=== PATIENT | male | born 1965 | race Two or more races ===

== ENCOUNTER 2022-09-08 20:49 | Emergency (ER) | payer SELFPAY ==
[~2022-09-08] VITALS: Ht 167.6 cm; Wt 70.0 kg
[2022-09-08 21:44] LABS: Basophils # (auto) 0 10 ^3/uL (0-0.2); Basophils % (auto) 0.7 % (0.0-2.0); Eosinophils # (auto) 0 10 ^3/uL (0-0.8); Eosinophils % (auto) 0.6 % (0.0-7.0); Hematocrit 46.3 % (41.0-53.0); Hemoglobin 15.6 g/dL (13.5-17.5); Lymphocytes % (auto) 30.9 % (10.0-50.0); Mean Corpuscular Hemoglobin 31.4 pg (28.0-32.0); Mean Corpuscular Hgb Conc. 33.7 g/dL (32.0-36.0); Mean Corpuscular Volume 93.2 fL (80.0-100.0); Monocytes # (auto) 0.3 10 ^3/uL (0-1.3); Monocytes % (auto) 5.1 % (0.0-12.0); Neutrophils % (auto) 62.7 % (37.0-80.0); Nucleated Red Blood Cells % 0.1 %; Red Blood Cells 4.97 10^6/uL (4.5-5.90); Red Cell Distribution Width 14.8 % (11.8-14.3); White Blood Cell 6.5 10^3/uL (4.4-10.8)
[2022-09-08 22:07] LABS: Albumin 3.8 g/dL (3.4-5.0); Calcium 7.7 mg/dL (8.5-10.1); Magnesium 2.8 mg/dL (1.6-2.6); Potassium 3.9 mmol/L (3.5-5.1)
[2022-09-08 22:08] LABS: Salicylate < 1.7 mg/dL (2.8-20.0)
[2022-09-08 22:09] LABS: Acetaminophen < 2.0 ug/mL (10-30)
[2022-09-08 22:11] LABS: BUN/Creatinine Ratio 15.6 (10.0-20.0); Bilirubin, Total 1.2 mg/dL (0.2-1.0); Total Protein 7.4 g/dL (6.4-8.2)
[2022-09-08] MEDS ORDERED: LACTATED RINGER'S 2,000 ML IV ONE (22:30)
[2022-09-09 02:20] VITALS: BP 142/86
== END 2022-09-09 05:20 | disposition home or self-care (01) ==
LOC: ER 20:49 → EDBD 20:49 → ER 09-09 05:20
DX: S01.01XA Laceration without foreign body of scalp, initial encounter (principal); F10.129 Alcohol abuse with intoxication, unspecified; E87.0 Hyperosmolality and hypernatremia; E86.0 Dehydration; W18.39XA Other fall on same level, initial encounter; Y93.89 Activity, other specified; Y92.89 Other specified places as the place of occurrence of the external cause; Y99.8 Other external cause status
CPT/HCPCS: 12001; 36415; 70450; 71045; 80053; 80320; 80329; 83735; 84484; 85025; 93005; 96360; 96361; 99285; J7030

== ENCOUNTER 2023-06-21 02:21 | Inpatient (IN) | payer MEDICAID, OTHER ==
[~2023-06-21] VITALS: Ht 165.1 cm; Wt 85.6 kg
[2023-06-21 04:20] VITALS: PULSE 79; RESP 20; O2SAT 97
[2023-06-21] MEDS: SODIUM CHLORIDE 0.9% 1,000 ML IV ONE (04:58)
[2023-06-21 05:00] LABS: Basophils # (auto) 0 10 ^3/uL (0-0.2); Eosinophils # (auto) 0 10 ^3/uL (0-0.8); Lymphocytes # (auto) 0.6 10 ^3/uL (0.4-5.4)
[2023-06-21 05:01] LABS: Basophils % (auto) 0.2 % (0.0-2.0); Hemoglobin 19.9 g/dL (13.5-17.5); Lymphocytes % (auto) 3.4 % (10.0-50.0); Mean Corpuscular Hemoglobin 31.7 pg (28.0-32.0); Mean Corpuscular Hgb Conc. 33.6 g/dL (32.0-36.0); Mean Corpuscular Volume 94.4 fL (80.0-100.0); Monocytes # (auto) 0.4 10 ^3/uL (0-1.3); Monocytes % (auto) 2.4 % (0.0-12.0); Neutrophils # (auto) 16.3 10 ^3/uL (1.6-8.6); Nucleated Red Blood Cells % 0.1 %; Red Blood Cells 6.28 10^6/uL (4.5-5.90); Red Cell Distribution Width 14.1 % (11.8-14.3); White Blood Cell 17.3 10^3/uL (4.4-10.8)
[2023-06-21 05:19] LABS: Hematocrit 59.3 % (41.0-53.0)
[2023-06-21 05:34] LABS: Alanine Aminotransferase 57 U/L (7-40); Albumin 5.4 g/dL (3.2-4.8); Alkaline Phosphatase 116 U/L (46-116); Anion Gap 11 (5-15); Aspartate Aminotransferase 39 U/L (13-40); BUN/Creatinine Ratio 13.4 (10.0-20.0); Blood Urea Nitrogen 23 mg/dL (9-23); Calcium 10.3 mg/dL (8.7-10.4); Carbon Dioxide 24 mmol/L (20-30); Chloride 99 mmol/L (98-107); Glucose 160 mg/dL (74-106); Lipase 47 U/L (12-53); Sodium 134 mmol/L (136-145)
[2023-06-21 05:35] LABS: Bilirubin, Total 2.5 mg/dL (0.2-1.0); Total Protein 9.2 g/dL (5.7-8.2)
[2023-06-21] MEDS: MORPHINE SULFATE INJ 2 MG/ml SYRG IV ONE (05:37)
[2023-06-21] MEDS: ONDANSETRON HCL 4 MG/2 ML VIAL IV ONE (05:38)
[2023-06-21] MEDS: PIPERACILLIN-TAZOB 3.375GM 100 ML IV ONE ×2 (05:59→06:17)
[2023-06-21] MEDS: ALBUTEROL SULF 2.5 MG/0.5ML(0.5%) NEB SOLN NEB ONE (06:05)
[2023-06-21] MEDS: SODIUM ZIRCONIUM CYCL 10 GM PAK PO ONE (06:47)
[2023-06-21] MEDS ORDERED: ONDANSETRON HCL 4 MG/2 ML VIAL IV PRN (07:00)
[2023-06-21] MEDS ORDERED: MORPHINE SULFATE INJ 2 MG/ml SYRG IV PRN (07:00)
[2023-06-21] MEDS ORDERED: NITROGLYCERIN 0.4 MG SL TAB SL PRN (07:00)
[2023-06-21] MEDS ORDERED: DOCUSATE SOD 100 MG CAP PO PRN (07:00)
[2023-06-21] MEDS: DEXTROSE (50%) 50ML SYRG IV ONE (07:14)
[2023-06-21] MEDS: CALCIUM CHL 100MG/ML 500 MG in D5W 5% 100 ML IV ONE (07:14)
[2023-06-21] MEDS: SODIUM BICARB 8.4% 50Meq/50ml SYR Vial IV ONE (07:18)
[2023-06-21] MEDS: InsuLIN REG 1unit/0.01ml Soln (100units/ml) IV ONE (07:22)
[2023-06-21 07:50] VITALS: PULSE 120; RESP 16; O2SAT 96
[2023-06-21] MEDS: SODIUM CHLORIDE 0.9% 1,000 ML IV SCH (08:52)
[2023-06-21 12:10] LABS: Albumin 4.4 g/dL (3.2-4.8); Bilirubin, Direct 0.5 mg/dL (<0.3); Bilirubin, Total 2.2 mg/dL (0.2-1.0); Total Protein 6.9 g/dL (5.7-8.2)
[2023-06-21] MEDS: cefTRIAXone 1GM/50ML D5W 50 ML IV ONE (13:03)
[2023-06-21] MEDS: metroNIDAZOLE 500MG/100ML 100 ML IV SCH (14:35)
[2023-06-21 16:00] VITALS: BP 145/85; PULSE 84; RESP 17; TEMP 98.1; O2SAT 92
[2023-06-21 16:30] VITALS: BP 145/86; PULSE 86; RESP 17; TEMP 98.1; O2SAT 92
[2023-06-21] MEDS: HYDROcodone-ACET 5/325MG TAB PO PRN (17:52)
[2023-06-21 20:00] VITALS: BP 119/74; PULSE 78; PULSE 99; RESP 22; TEMP 98.5; O2SAT 98
[2023-06-21 21:00] VITALS: BP 119/74; PULSE 99; RESP 22; TEMP 98.5; O2SAT 98
[2023-06-22] VITALS (8 sets, daily range): BP systolic 102–133; BP diastolic 59–92; PULSE 63–89; RESP 17–22; TEMP 98–98.6; O2SAT 94–99
[2023-06-22 06:12] LABS: Alanine Aminotransferase 34 U/L (7-40); Albumin 3.8 g/dL (3.2-4.8); Alkaline Phosphatase 72 U/L (46-116); Amylase 63 U/L (30-118); Anion Gap 3 (5-15); Aspartate Aminotransferase 26 U/L (13-40); BUN/Creatinine Ratio 17.3 (10.0-20.0); Blood Urea Nitrogen 17 mg/dL (9-23); Calcium 8.1 mg/dL (8.7-10.4); Carbon Dioxide 30 mmol/L (20-30); Chloride 107 mmol/L (98-107); Glucose 107 mg/dL (74-106); Potassium 3.5 mmol/L (3.5-5.1); Sodium 140 mmol/L (136-145)
[2023-06-22 06:13] LABS: Total Protein 6.2 g/dL (5.7-8.2)
[2023-06-22 06:15] LABS: Basophils # (auto) 0 10 ^3/uL (0-0.2); Basophils % (auto) 0.5 % (0.0-2.0); Eosinophils # (auto) 0.1 10 ^3/uL (0-0.8); Eosinophils % (auto) 0.5 % (0.0-7.0); Hematocrit 48.6 % (41.0-53.0); Hemoglobin 16.1 g/dL (13.5-17.5); Lymphocytes # (auto) 1.6 10 ^3/uL (0.4-5.4); Lymphocytes % (auto) 16.6 % (10.0-50.0); Mean Corpuscular Hemoglobin 31.3 pg (28.0-32.0); Mean Corpuscular Hgb Conc. 33.1 g/dL (32.0-36.0); Mean Corpuscular Volume 94.6 fL (80.0-100.0); Monocytes # (auto) 0.9 10 ^3/uL (0-1.3); Monocytes % (auto) 8.9 % (0.0-12.0); Neutrophils # (auto) 7.1 10 ^3/uL (1.6-8.6); Neutrophils % (auto) 73.5 % (37.0-80.0); Nucleated Red Blood Cells % 0.1 %; Red Blood Cells 5.14 10^6/uL (4.5-5.90); Red Cell Distribution Width 14.1 % (11.8-14.3); White Blood Cell 9.6 10^3/uL (4.4-10.8)
[2023-06-22] MEDS: cefTRIAXone 1GM/50ML D5W 50 ML IV SCH (08:53)
[2023-06-22] MEDS: PANTOPRAZOLE 40 MG/10 ML VIAL INJ IV ONE (11:15)
[2023-06-23] VITALS (8 sets, daily range): BP systolic 110–130; BP diastolic 71–87; PULSE 59–80; RESP 17–20; TEMP 97.9–98.9; O2SAT 96–98
[2023-06-23 06:32] LABS: Alanine Aminotransferase 31 U/L (7-40); Albumin 3.3 g/dL (3.2-4.8); Alkaline Phosphatase 64 U/L (46-116); Amylase 55 U/L (30-118); Anion Gap 3 (5-15); Aspartate Aminotransferase 28 U/L (13-40); BUN/Creatinine Ratio 12.7 (10.0-20.0); Bilirubin, Total 2.9 mg/dL (0.2-1.0); Blood Urea Nitrogen 10 mg/dL (9-23); Calcium 8.3 mg/dL (8.7-10.4); Carbon Dioxide 27 mmol/L (20-30); Chloride 107 mmol/L (98-107); Glucose 93 mg/dL (74-106); Lipase 40 U/L (12-53); Potassium 4.2 mmol/L (3.5-5.1); Sodium 137 mmol/L (136-145); Total Protein 5.5 g/dL (5.7-8.2)
[2023-06-23 06:35] LABS: Basophils # (auto) 0.1 10 ^3/uL (0-0.2); Basophils % (auto) 0.7 % (0.0-2.0); Eosinophils # (auto) 0.2 10 ^3/uL (0-0.8); Eosinophils % (auto) 2.4 % (0.0-7.0); Hematocrit 44.4 % (41.0-53.0); Hemoglobin 15.3 g/dL (13.5-17.5); Lymphocytes # (auto) 2.1 10 ^3/uL (0.4-5.4); Lymphocytes % (auto) 27.2 % (10.0-50.0); Mean Corpuscular Hemoglobin 32.4 pg (28.0-32.0); Mean Corpuscular Hgb Conc. 34.4 g/dL (32.0-36.0); Mean Corpuscular Volume 94.4 fL (80.0-100.0); Monocytes # (auto) 0.6 10 ^3/uL (0-1.3); Monocytes % (auto) 8.4 % (0.0-12.0); Neutrophils # (auto) 4.7 10 ^3/uL (1.6-8.6); Neutrophils % (auto) 61.3 % (37.0-80.0); Red Cell Distribution Width 13.4 % (11.8-14.3); White Blood Cell 7.7 10^3/uL (4.4-10.8)
[2023-06-23] MEDS: PANTOPRAZOLE 40 MG/10 ML VIAL INJ IV SCH (08:18)
[2023-06-24 05:00] VITALS: BP 132/89; PULSE 65; RESP 16; TEMP 98.3; O2SAT 98
[2023-06-24 05:56] LABS: Basophils # (auto) 0 10 ^3/uL (0-0.2); Basophils % (auto) 0.3 % (0.0-2.0); Eosinophils # (auto) 0.1 10 ^3/uL (0-0.8); Hematocrit 46.5 % (41.0-53.0); Lymphocytes # (auto) 1.3 10 ^3/uL (0.4-5.4); Lymphocytes % (auto) 13.4 % (10.0-50.0); Mean Corpuscular Hgb Conc. 34.4 g/dL (32.0-36.0); Monocytes # (auto) 0.7 10 ^3/uL (0-1.3); Monocytes % (auto) 7.3 % (0.0-12.0); Neutrophils # (auto) 7.6 10 ^3/uL (1.6-8.6); Nucleated Red Blood Cells % 0.1 %; Red Blood Cells 4.99 10^6/uL (4.5-5.90); Red Cell Distribution Width 13.3 % (11.8-14.3); White Blood Cell 9.8 10^3/uL (4.4-10.8)
[2023-06-24 06:06] LABS: Prothrombin Time 10.5 sec (9.3-11.8)
[2023-06-24 06:24] LABS: Alanine Aminotransferase 39 U/L (7-40); Alkaline Phosphatase 77 U/L (46-116); Anion Gap 6 (5-15); Aspartate Aminotransferase 34 U/L (13-40); BUN/Creatinine Ratio 12.3 (10.0-20.0); Bilirubin, Total 2.2 mg/dL (0.2-1.0); Blood Urea Nitrogen 9 mg/dL (9-23); Calcium 8.6 mg/dL (8.5-10.1); Carbon Dioxide 25 mmol/L (20-30); Chloride 105 mmol/L (98-107); Glucose 98 mg/dL (74-106); Potassium 4.1 mmol/L (3.5-5.1); Sodium 136 mmol/L (136-145); Total Protein 6.1 g/dL (5.7-8.2)
[2023-06-24 08:00] VITALS: PULSE 62
[2023-06-24 09:00] VITALS: BP 140/88; PULSE 64; RESP 19; TEMP 97.7; O2SAT 98
[2023-06-24 09:03] LABS: Hepatitis B Core Total AB Negative (Negative)
[2023-06-24 11:56] LABS: Urine Bacteria None Seen /hpf (None Seen)
[2023-06-24 12:08] LABS: Hepatitis A Total Antibody Positive (Negative); Hepatitis B Surface Antibody Negative (Negative)
[2023-06-24 12:09] LABS: Hepatitis B Surface Antigen Negative (Negative); Hepatitis C Antibody Negative (Negative)
[2023-06-24 12:13] LABS: Urine Blood Negative /uL (Negative); Urine Clarity Clear (Clear); Urine Color Light-Yellow (Yellow); Urine Mucus FEW (None Seen); Urine Protein, UAD Negative (Negative); Urine Specific Gravity 1.013 (1.001-1.035); Urine Urobilinogen Normal (Negative); Urine WBC <1 /hpf (0 - 3)
[2023-06-24 13:30] VITALS: BP 123/85; PULSE 67; RESP 19; TEMP 98.1; O2SAT 99
[2023-06-24 16:30] VITALS: BP 126/70; PULSE 76; RESP 18; TEMP 97.9; O2SAT 98
[2023-06-24 21:00] VITALS: BP 137/87; PULSE 67; RESP 17; TEMP 97.3; O2SAT 98
[2023-06-25] VITALS (7 sets, daily range): BP systolic 103–157; BP diastolic 64–97; PULSE 53–70; RESP 15–16; TEMP 97–98.5; O2SAT 93–98
[2023-06-25] MEDS ORDERED: MIDAZOLAM HCL 2MG/2ML 2ml VIAL (1mg/ml) ONE (07:24)
[2023-06-25] MEDS ORDERED: fentaNYL CITRATE 100 MCG/2 ML VL ONE (07:24)
[2023-06-25] MEDS ORDERED: PROPOFOL 10 MG/ML 20 ML IV ONE ×2 (07:28→09:09)
[2023-06-25] MEDS ORDERED: LIDOCAINE 2% (LOCAL ANESTH.) PF 5ml SDV ONE ×2 (07:28→09:09)
[2023-06-25] MEDS ORDERED: ONDANSETRON HCL 4 MG/2 ML VIAL ONE ×2 (07:28→09:09)
[2023-06-25] MEDS ORDERED: ROCURONIUM 10MG/ML 10ML VIAL IV ONE (07:28)
[2023-06-25] MEDS: LIDOCAINE W/ EPINEPHRINE 1% 20ML VIAL ONE (08:22)
[2023-06-25] MEDS: BUPIVACAINE 0.25% INJ 50ML VIAL ONE (08:22)
[2023-06-25] MEDS ORDERED: HYDROmorphone HCL 2 MG/ML VL/or syr IV PRN ×2 (08:30)
[2023-06-25] MEDS ORDERED: ONDANSETRON HCL 4 MG/2 ML VIAL IV PRN (08:45)
[2023-06-25] MEDS: HYDROmorphone HCL 2 MG/ML VL/or syr ONE (08:55)
[2023-06-25] MEDS ORDERED: NEOSTIGMINE 1 MG/ML INJ (10mg/10ML VIAL) ONE (09:08)
[2023-06-25] MEDS ORDERED: GLYCOPYRROLATE 0.2 MG/ML 1ML VIAL ONE (09:08)
[2023-06-25] MEDS ORDERED: hydrALAZINE HCL 20 MG/ML VL IV ONE (09:15)
[2023-06-25] MEDS ORDERED: PANTOPRAZOLE 40 MG/10 ML VIAL INJ IV SCH (10:00)
[2023-06-25 10:17] LABS: Basophils # (auto) 0 10 ^3/uL (0-0.2); Basophils % (auto) 0.3 % (0.0-2.0); Eosinophils # (auto) 0.1 10 ^3/uL (0-0.8); Eosinophils % (auto) 1.1 % (0.0-7.0); Hematocrit 48.6 % (41.0-53.0); Hemoglobin 16.6 g/dL (13.5-17.5); Lymphocytes # (auto) 1.4 10 ^3/uL (0.4-5.4); Mean Corpuscular Hemoglobin 32.4 pg (28.0-32.0); Mean Corpuscular Hgb Conc. 34.2 g/dL (32.0-36.0); Mean Corpuscular Volume 94.7 fL (80.0-100.0); Monocytes # (auto) 0.7 10 ^3/uL (0-1.3); Monocytes % (auto) 5.9 % (0.0-12.0); Neutrophils # (auto) 10.2 10 ^3/uL (1.6-8.6); Neutrophils % (auto) 81.7 % (37.0-80.0); Red Blood Cells 5.13 10^6/uL (4.5-5.90); Red Cell Distribution Width 13.4 % (11.8-14.3); White Blood Cell 12.5 10^3/uL (4.4-10.8)
[2023-06-25 10:31] LABS: Alanine Aminotransferase 68 U/L (7-40); Albumin 3.7 g/dL (3.2-4.8); Alkaline Phosphatase 72 U/L (46-116); Anion Gap 3 (5-15); Aspartate Aminotransferase 84 U/L (13-40); BUN/Creatinine Ratio 6.7 (10.0-20.0); Blood Urea Nitrogen 7 mg/dL (9-23); Calcium 8.6 mg/dL (8.5-10.1); Carbon Dioxide 26 mmol/L (20-30); Chloride 110 mmol/L (98-107); Glucose 121 mg/dL (74-106); Potassium 5.1 mmol/L (3.5-5.1); Sodium 139 mmol/L (136-145)
[2023-06-25 10:32] LABS: Bilirubin, Total 1.4 mg/dL (0.2-1.0); Total Protein 5.9 g/dL (5.7-8.2)
[2023-06-25] MEDS: ONDANSETRON HCL 4 MG/2 ML VIAL IV ONE (11:32)
[2023-06-25] MEDS: ceFAZolin 2 GM/D5W50ml 50 ML IV ONE (11:32)
[2023-06-25 11:43] LABS: INR 1.05 (0.9-1.15); Partial Thromboplastin Time 28.1 SEC (24.5-34.5)
[2023-06-25] MEDS: D5W/SOD CHL 0.45%/KCL 20MEQ 1,000 ML IV SCH (12:09)
[2023-06-25] MEDS: metroNIDAZOLE 500MG/100ML 100 ML IV SCH (13:36)
[2023-06-25] MEDS: HYDROmorphone HCL 2 MG/ML VL/or syr IV PRN (13:38)
[2023-06-25] MEDS ORDERED: ceFAZolin 1GM/50ML 50 ML IV SCH (14:00)
[2023-06-26 01:00] VITALS: BP 112/77; PULSE 70; RESP 15; TEMP 97.8; O2SAT 94
[2023-06-26] MEDS: ACETAMINOPHEN 325 MG TAB PO PRN (03:46)
[2023-06-26 05:00] VITALS: BP 131/83; PULSE 67; RESP 18; TEMP 98; O2SAT 97
[2023-06-26 06:15] LABS: Basophils # (auto) 0 10 ^3/uL (0-0.2); Basophils % (auto) 0.6 % (0.0-2.0); Eosinophils # (auto) 0.2 10 ^3/uL (0-0.8); Hematocrit 46.2 % (41.0-53.0); Hemoglobin 15.4 g/dL (13.5-17.5); Lymphocytes # (auto) 1.4 10 ^3/uL (0.4-5.4); Lymphocytes % (auto) 17.6 % (10.0-50.0); Mean Corpuscular Hemoglobin 31.5 pg (28.0-32.0); Mean Corpuscular Hgb Conc. 33.3 g/dL (32.0-36.0); Mean Corpuscular Volume 94.5 fL (80.0-100.0); Monocytes # (auto) 0.8 10 ^3/uL (0-1.3); Monocytes % (auto) 9.8 % (0.0-12.0); Neutrophils # (auto) 5.7 10 ^3/uL (1.6-8.6); Red Blood Cells 4.89 10^6/uL (4.5-5.90); Red Cell Distribution Width 13.3 % (11.8-14.3); White Blood Cell 8.2 10^3/uL (4.4-10.8)
[2023-06-26 06:31] LABS: Alanine Aminotransferase 65 U/L (7-40); Albumin 3.7 g/dL (3.2-4.8); Alkaline Phosphatase 78 U/L (46-116); Anion Gap 5 (5-15); Aspartate Aminotransferase 70 U/L (13-40); Bilirubin, Total 2.1 mg/dL (0.2-1.0); Calcium 8.5 mg/dL (8.5-10.1); Carbon Dioxide 24 mmol/L (20-30); Chloride 106 mmol/L (98-107); Glucose 115 mg/dL (74-106); Sodium 135 mmol/L (136-145)
[2023-06-26 06:32] LABS: Total Protein 5.6 g/dL (5.7-8.2)
[2023-06-26 06:36] LABS: BUN/Creatinine Ratio 6.4 (10.0-20.0); Blood Urea Nitrogen < 5 mg/dL (9-23)
[2023-06-26] MEDS ORDERED: DOCU-94 PO (09:51)
[2023-06-26] MEDS ORDERED: TRAM-626 PO (09:51)
[2023-06-26] MEDS ORDERED: LEVO500T91 PO (09:51)
[2023-06-26] MEDS ORDERED: MET500T PO (09:51)
[2023-06-26 10:03] VITALS: BP 119/76; PULSE 63; RESP 18; TEMP 98.7; O2SAT 96
[2023-06-26 13:23] VITALS: BP 105/74; PULSE 60; RESP 18; TEMP 98.6; O2SAT 99
== END 2023-06-26 14:52 | disposition home or self-care (01) | DRG 710 ==
LOC: ER 02:21 → TELE 06:53 → TELE-CENTR 16:04 → CENTRAL 06-24 13:25
PROVIDERS: ADMIT Nurse Practitioner Family; ATTEND Internal Medicine
PROC: 0FT44ZZ Resection of Gallbladder, Percutaneous Endoscopic Approach (ICD-10-PCS; principal; 2023-06-25 07:27)
DX: A41.9 Sepsis, unspecified organism (principal); N17.0 Acute kidney failure with tubular necrosis; K80.62 Calculus of gallbladder and bile duct with acute cholecystitis without obstruction; K72.90 Hepatic failure, unspecified without coma; E87.5 Hyperkalemia; R73.9 Hyperglycemia, unspecified; R19.7 Diarrhea, unspecified; J98.11 Atelectasis; F10.10 Alcohol abuse, uncomplicated; E66.9 Obesity, unspecified; Y90.9 Presence of alcohol in blood, level not specified; Z68.31 Body mass index [BMI] 31.0-31.9, adult
CPT/HCPCS: 36415; 71045; 74176; 74181; 76705; 78226; 80053; 80076; 81001; 82150; 82728; 83036; 83690; 84132; 85025; 85610; 85730; 86704; 86706; 86708; 86803; 86850; 86900; 86901; 87340; 93005; 94640; 96361; 96365; 96375; C9113; G0378; J1815; J2001; J2250; J2405; J2543; J2704; J3490; J7060